=== PATIENT | female | born 1960 | race Caucasian/White ===

== ENCOUNTER 2021-03-28 08:28 | Outpatient (CLI) | payer SELFPAY | END 2021-03-28 08:29 | disposition home or self-care (01) | LOC: CSHMAMMO 08:28 | PROVIDERS: ATTEND Family Medicine | DX: Z12.31 Encounter for screening mammogram for malignant neoplasm of breast (principal); Z98.890 Other specified postprocedural states | CPT/HCPCS: 77063; 77067 ==

== ENCOUNTER 2025-03-23 07:28 | Emergency (ER) | payer MEDICARE ==
[2025-03-23] MEDS ORDERED: Ketorolac Tromethamine 30 MG (1 mL) VIAL ONE (08:43)
== END 2025-03-23 10:54 | disposition home or self-care (01) ==
LOC: CSHERS 07:28
DX: S13.9XXA Sprain of joints and ligaments of unspecified parts of neck, initial encounter (principal); I10 Essential (primary) hypertension; X58.XXXA Exposure to other specified factors, initial encounter
CPT/HCPCS: 72125; 96372; 99283; J1885